=== PATIENT | male | born 1970 | race Caucasian/White ===

== ENCOUNTER 2022-01-10 13:14 | Emergency (ER) | payer OTHER ==
[2022-01-10 13:22] VITALS: BP 123/82; PULSE 66; TEMP 99.3; BMI 27.3
[2022-01-10] MEDS ORDERED: NAPROXEN 375 MG TABLET PO ONE (16:15)
[2022-01-10] MEDS ORDERED: NAPROXEN 375 MG TABLET ONE (16:20)
== END 2022-01-10 16:25 | disposition home or self-care (01) ==
LOC: FER 13:14
DX: M19.072 Primary osteoarthritis, left ankle and foot (principal)
CPT/HCPCS: 73630-TC-LT; 93971-TC; 99284-25

== ENCOUNTER 2022-03-27 15:37 | Emergency (ER) | payer OTHER ==
[2022-03-27 16:11] VITALS: RESP 18; TEMP 98.6; BMI 28.0
[2022-03-27 16:29] LABS: HEMATOCRIT 43.2 % (35.4-49); HEMOGLOBIN 15.3 G/dL (11.7-16.9); MCH 34.8 pg (25.7-33.7); MCHC 35.5 g/dl (32.0-35.9); MEAN CELL VOLUME 97.9 fl (80-96); PLATELET COUNT 166.6 10^3/uL (134-434); RBC 4.41 10^6/uL (4.00-5.60); RDW 14.1 % (11.9-15.9); WHITE BLOOD COUNT 4.4 10^3/uL (4.0-10.8)
[2022-03-27 16:30] LABS: ALBUMIN 4.1 g/dl (3.4-5.0); BILIRUBIN,TOTAL 1.9 mg/dl (0.2-1); CALCIUM 9.1 mg/dl (8.5-10); CREATININE 0.9 mg/dl (0.55-1.3)
[2022-03-27 17:03] VITALS: BP 139/103; PULSE 89
== END 2022-03-27 17:03 | disposition home or self-care (01) ==
LOC: FER 15:37
DX: R00.2 Palpitations (principal)
CPT/HCPCS: 36415; 71045-TC-FY; 80053; 84484; 85027; 93005; 99285-25